=== PATIENT | male | born 1955 | race Caucasian/White ===

== ENCOUNTER 2020-01-21 18:25 | Observation (INO) | payer OTHER, MEDICARE ==
[~2020-01-21] VITALS: Ht 182 cm; Wt 81.0 kg
[~2020-01-21 18:25] MED LIST: BIMA2.5D4 OU; LORA10TA76 PO
[2020-01-21] MEDS ORDERED: NITROGLYCERIN 0.4 MG SL TABS BTL 25'S SL PRN ×2 (18:45→22:30)
[2020-01-21] MEDS ORDERED: ASPIRIN 81 MG CHEW (CHILDREN'S ASA) PO ONE (18:45)
--- NOTE | 2020-01-21 18:48 | Diagnostic Imaging Report ---
Indication: Chest pain Portable chest 6:50 PM Heart size and pulmonary vascularity are normal. Lungs are clear. There are no effusions or pneumothoraces. IMPRESSION: Negative chest Dictated by: Dictated on workstation # [id number]
[2020-01-21 18:51] LABS: BASOPHILS % (AUTO) 1 % (0-10); EOSINOPHILS # (AUTO) 0.1 10^3/uL (0.0-0.3); EOSINOPHILS % (AUTO) 2 % (0-10); HEMATOCRIT 41 % (40-54); HEMOGLOBIN 14.3 G/DL (13.3-17.7); LYMPHOCYTES # (AUTO) 1.2 X 10^3 (1.0-4.0); LYMPHOCYTES % (AUTO) 23 % (12-44); MEAN CORPUSCULAR HEMOGLOBIN 33 PG (25-34); MEAN CORPUSCULAR HGB CONC 35 G/DL (32-36); MEAN CORPUSCULAR VOLUME 95 FL (80-99); MEAN PLATELET VOLUME 9.1 FL (7.4-10.4); MONOCYTES # (AUTO) 0.7 X 10^3 (0.0-1.0); MONOCYTES % (AUTO) 14 % (0-12); NEUTROPHILS # (AUTO) 3.2 X 10^3 (1.8-7.8); NEUTROPHILS % (AUTO) 61 % (42-75); PLATELET COUNT 244 10^3/uL (130-400); WHITE BLOOD COUNT 5.2 10^3/uL (4.3-11.0)
--- NOTE | 2020-01-21 19:00 | ED Chest Pain ---
General Chief Complaint: Chest Pain Stated Complaint: ABNORMAL EKG;CHEST PRESSURE;HIGH BP Nursing Triage Note: PT STATES HE WAS EXPOSED TO A COVID POSITIVE PERSON ON 01/15, CC TODAY OF CHEST PAIN/PRESSURE, HEADACHE AND DRY HEAVES. SENT HERE FROM [facility] AFTER A NEGATIVE COVID AND FLU TEST. Nursing Sepsis Screen: No Definite Risk Source: patient Exam Limitations: no limitations History of Present Illness Date Seen by Provider: Jan 21, 2020 Time Seen by Provider: 18:28 Initial Comments The patient presents to the ER by private conveyance from [facility] care with chief complaint this morning around 10:00 he started expressing some pressure in his midepigastric and low chest area. Not worse with deep inspiration. He describes some mild shortness of air but not exertional. It does not radiate anywhere and is constant about a 5 or 6 out of 10. He also has a headache about a 5 out of 10 and this is not unusual since he gets sinus headaches however he's not having any nasal congestion or sinus pain lately. He has no coughing but has some nausea with dry heaving and constipation. No diarrhea. One week ago he was a chiropractor who called him and told her that they had COVID-19. He has had no fevers. He had an appointment to follow up with some blood work with Dr. Andrew Connell his PCP tomorrow and since he had a sick contact he decided to go to the urgent care to be tested. They tested him for influenza and COVID-19 both of which were negative. He then got an EKG demonstrating no ST elevation and was sent to the ER for further evaluation. He's had no abdominal surgeries. He does not otherwise routinely follow with a doctor. He does have hypertension but does not take anything for it yet. He does not know about hyperlipidemia and denies a history of diabetes or smoking. He says in the distant past 20 years or more he had smoked. He does not take recreational drugs. He does drink about 5-6 beers a day. No history of pancreatitis GERD or endoscopy. Allergies and Home Medications Allergies Coded Allergies: ciprofloxacin (Verified Allergy, Unknown, knee joint pain, 03/02/16) Uncoded Allergies: steroids (Allergy, Unknown, has retina problems and told to avoid steroids, 03/02/16) Home Medications Bimatoprost 2.5 Ml Drops, 1 DROP OU HS, (Reported) Loratadine 10 Mg Tablet, 10 MG PO DAILY, (Reported) Patient Home Medication List Home Medication List Reviewed: Yes Review of Systems Review of Systems Constitutional: No chills, No fever, No malaise EENTM: No Blurred Vision, No Double Vision Respiratory: Denies Cough, Denies Shortness of Air Cardiovascular: See HPI, Chest Pain; Denies Lightheadedness Gastrointestinal: See HPI, Abdominal Pain, Constipated; Denies Diarrhea; Nausea, Poor Fluid Intake, Vomiting Genitourinary: Denies Burning, Denies Discharge Musculoskeletal: No back pain, No joint pain Skin: No pruritus, No rash Psychiatric/Neurological: Denies Headache, Denies Numbness, Denies Paresthesia All Other Systems Reviewed Negative Unless Noted: Yes Past Syftkdo-Lsavza-Mkkwwo Hx Patient Social History Alcohol Use: Regular Use Alcohol Beverage of Choice: Beer (6 pk/day) Recreational Drug Use: No Smoking Status: Former Smoker Former Smoker, Quit: Mar 04, 1985 Recent Foreign Travel: No Contact w/Someone Who Travel: No Recent Infectious Disease Expo: No Recent Hopitalizations: No Seasonal Allergies Seasonal Allergies: Yes Past Medical History Tonsillectomy, Vasectomy Prostate Problems Arthritis Glaucoma Physical Exam Vital Signs Vital Signs - First Documented 01/21/20 18:31 Temp 36.6 Pulse 75 Resp 20 B/P (MAP) 169/92 (117) Pulse Ox 100 O2 Delivery Room Air Capillary Refill : Less Than 3 Seconds Height, Weight, BMI Height: 6'0.00" Weight: 160lbs. 0.0oz. 72.037295hj; 24.00 BMI Method: General Appearance: No Apparent Distress, WD/WN, Anxious HEENT: PERRL/EOMI, Pharynx Normal, Moist Mucous Membranes Neck: Full Range of Motion, Normal Inspection Respiratory: Chest Non Tender, Lungs Clear, Normal Breath Sounds, No Accessory Muscle Use, No Respiratory Distress Cardiovascular: Regular Rate, Rhythm, No Edema, Normal Peripheral Pulses Gastrointestinal: Normal Bowel Sounds, No Organomegaly, No Pulsatile Mass, Soft, Tenderness (midepigastric and right upper quadrant) Extremity: Normal Capillary Refill, Normal Inspection, No Calf Tenderness, No Pedal Edema Neurologic/Psychiatric: Alert, Oriented x3 Skin: Normal Color, Warm/Dry Progress/Results/Core Measures Results/Orders Lab Results Laboratory Tests Test 9/28/20 18:35 Range/Units White Blood Count 5.2 4.3-11.0 10^3/uL Red Blood Count 4.35 4.35-5.85 10^6/uL Hemoglobin 14.3 13.3-17.7 G/DL Hematocrit 41 40-54 % Mean Corpuscular Volume 95 80-99 FL Mean Corpuscular Hemoglobin 33 25-34 PG Mean Corpuscular Hemoglobin Concent 35 32-36 G/DL Red Cell Distribution Width 12.4 10.0-14.5 % Platelet Count 244 130-400 10^3/uL Mean Platelet Volume 9.1 7.4-10.4 FL Neutrophils (%) (Auto) 61 42-75 % Lymphocytes (%) (Auto) 23 12-44 % Monocytes (%) (Auto) 14 H 0-12 % Eosinophils (%) (Auto) 2 0-10 % Basophils (%) (Auto) 1 0-10 % Neutrophils # (Auto) 3.2 1.8-7.8 X 10^3 Lymphocytes # (Auto) 1.2 1.0-4.0 X 10^3 Monocytes # (Auto) 0.7 0.0-1.0 X 10^3 Eosinophils # (Auto) 0.1 0.0-0.3 10^3/uL Basophils # (Auto) 0.0 0.0-0.1 10^3/uL Prothrombin Time 12.9 12.2-14.7 SEC INR Comment 0.9 0.8-1.4 Activated Partial Thromboplast Time 27 24-35 SEC Sodium Level 133 L 135-145 MMOL/L Potassium Level 3.8 3.6-5.0 MMOL/L Chloride Level 96 L 98-107 MMOL/L Carbon Dioxide Level 23 21-32 MMOL/L Anion Gap 14 5-14 MMOL/L Blood Urea Nitrogen 9 7-18 MG/DL Creatinine 0.80 0.60-1.30 MG/DL Estimat Glomerular Filtration Rate > 60 BUN/Creatinine Ratio 11 Glucose Level 72 70-105 MG/DL Calcium Level 9.5 8.5-10.1 MG/DL Corrected Calcium 8.5-10.1 MG/DL Magnesium Level 2.2 1.6-2.4 MG/DL Total Bilirubin 0.9 0.1-1.0 MG/DL Aspartate Amino Transf (AST/SGOT) 55 H 5-34 U/L Alanine Aminotransferase (ALT/SGPT) 55 0-55 U/L Alkaline Phosphatase 48 40-136 U/L Myoglobin 33.6 10.0-92.0 NG/ML Troponin I < 0.028 <0.028 NG/ML B-Type Natriuretic Peptide 16.0 <100.0 PG/ML Total Protein 7.5 6.4-8.2 GM/DL Albumin 4.7 H 3.2-4.5 GM/DL Lipase 32 8-78 U/L My Orders Orders - CASTRO JOHNSON Cbc With Automated Diff (01/21/20 18:29) Magnesium (01/21/20 18:29) Chest 1 View, Ap/Pa Only (01/21/20 18:29) Ekg Tracing (01/21/20 18:29) Comprehensive Metabolic Panel (01/21/20 18:29) Myoglobin Serum (01/21/20 18:29) Protime With Inr (01/21/20 18:29) Partial Thromboplastin Time (01/21/20 18:29) O2 (01/21/20 18:29) Monitor-Rhythm Ecg Trace Only (01/21/20 18:29) Lipid Panel (01/22/20 06:00) Ed Iv/Invasive Line Start (01/21/20 18:29) Lipase (01/21/20 18:29) BNP (01/21/20 18:29) Troponin I (01/21/20 18:29) Aspirin Chewable Tablet (Baby Aspirin Ch (01/21/20 18:45) Nitroglycerin 0.4 Mg Btl 25's (Nitrostat (01/21/20 18:45) Lidocaine 2% Viscous 15 Ml (Xylocaine Vi (01/21/20 19:15) Antacid Suspension (Mylanta Suspension (01/21/20 19:15) Pantoprazole Injection (Protonix Injecti (01/21/20 19:15) Ct Abdomen/Pelvis W (01/21/20 19:29) Iohexol Injection (Omnipaque 350 Mg/Ml 1 (01/21/20 20:15) Received Contrast (Hold Metformin- Contr (01/21/20 20:15) Ns (Ivpb) (Sodium Chloride 0.9% Ivpb Bag (01/21/20 20:15) Medications Given in ED Current Medications Medications Dose Ordered Sig/Olga Route Start Time Stop Time Status Last Admin Dose Admin Al Hydrox/Mg Hydrox/Simethicone 30 ml ONCE ONCE PO 01/21/20 19:15 01/21/20 19:16 DC 01/21/20 19:15 30 ML Aspirin 324 mg ONCE ONCE PO 01/21/20 18:45 01/21/20 18:47 DC 01/21/20 18:48 324 MG Lactated Ringer's 1,000 ml @ 0 mls/hr Q0M ONCE IV 01/21/20 19:36 01/21/20 19:37 DC 01/21/20 19:51 1,000 MLS/HR Lidocaine HCl 15 ml ONCE ONCE PO 01/21/20 19:15 01/21/20 19:16 DC 01/21/20 19:15 15 ML Nitroglycerin 0.4 mg NEEDED PRN SL 01/21/20 18:45 01/21/20 18:48 0.4 MG Pantoprazole 40 mg ONCE ONCE IV 01/21/20 19:15 01/21/20 19:16 DC 01/21/20 19:26 40 MG Vital Signs/I&O 01/21/20 01/21/20 18:31 18:40 Temp 36.6 Pulse 75 Resp 20 B/P (MAP) 169/92 (117) Pulse Ox 100 O2 Delivery Room Air Room Air Blood Pressure Mean: 117 Progress Progress Note #1: Time: 19:07 Progress Note Pain seems to be reproducible to the midepigastric and right upper quadrant. GERD/gastritis, pancreatitis, gallbladder are in the differential. We will also workup coronary disease since he does not have a good history given his age and history of hypertension. He has a negative influenza and COVID 19 test. He is comfortable by an EKG from [facility] care showing no clinically relevant ST elevation or depression. Progress Note #2: Time: 19:30 Progress Note While the patient says the nitroglycerin did slightly help his discomfort ease off the GI cocktail did not do anything for him. He still rates it as a 4 out of 10 pain in the epigastric region. Plan to get a CT with IV contrast. Last oral intake was at noon, 7 1/2 hours ago. Heart score 4 points. We have recommended observation stay if the CT does not demonstrate acute cholecystitis. Initial ECG Impression Date: Jan 21, 2020 Initial ECG Impression Time: 18:35 Initial ECG Rate: 69 Initial ECG Rhythm: Normal Sinus Initial ECG Intervals: Normal Initial ECG Impression: Normal Initial ECG Comparisson: No Previous ECG Available Comment No clinically relevant ST elevation or depression. Sinus rhythm. Diagnostic Imaging Diagonstic Imaging: Xray Plain Films/CT/US/NM/MRI: chest (1v) Comments NAME: JESSIE BALLARD [facility] REC#: [id number] PT STATUS: REG ER : 1955 PHYSICIAN: CASTRO JOHNSON MD ADMIT DATE: 01/21/20/ER Signed Date of Exam:01/21/20 CHEST 1 VIEW, AP/PA ONLY Indication: Chest pain Portable chest 6:50 PM Heart size and pulmonary vascularity are normal. Lungs are clear. There are no effusions or pneumothoraces. IMPRESSION: Negative chest Dictated by: Dictated on workstation # [id number] Dict: 01/21/201845 Trans: 01/21/201846 [id number] Interpreted by: MITCHELL ISRAEL MD Electronically signed by: MITCHELL ISRAEL MD 01/21/201846 Reviewed: Reviewed by De Diagonstic Imaging: CT Plain Films/CT/US/NM/MRI: abdomen, pelvis Comments NAME: JESSIE BALLARD [facility] REC#: [id number] PT STATUS: REG ER : 1955 PHYSICIAN: CASTRO JOHNSON MD ADMIT DATE: 01/21/20/ER Draft Date of Exam:01/21/20 CT ABDOMEN/PELVIS W PROCEDURE: CT abdomen and pelvis with contrast. TECHNIQUE: Multiple contiguous axial images were obtained through the abdomen and pelvis after administration of intravenous contrast. Auto Exposure Controls were utilized during the CT exam to meet ALARA standards for radiation dose reduction. All CT scans use one or more of the following dose optimizing techniques: automated exposure control, MA and/or KvP adjustment based on patient size and exam type or iterative reconstruction. INDICATION: Chest pain, abnormal EKG, right upper quadrant abdominal pain, nausea. COMPARISON: None FINDINGS: The lung bases are clear. The heart is normal in size. There is no pericardial effusion. This is a postcontrast exam but the liver does appear hypodense suggestive of hepatic steatosis. The spleen appears normal. The pancreas is normal. The adrenal glands appear normal. The kidneys are unremarkable. The bowel loops are nondistended without obstruction seen. The appendix is normal. No free fluid or free air is seen. There are degenerative changes in the spine with no acute osseous abnormality seen. IMPRESSION: 1. Hepatic steatosis. Otherwise, no acute abnormality is seen in the abdomen and pelvis. Dictated on workstation # [id number] Dict: 01/21/202026 Trans: 01/21/202034 [facility] [id number] Interpreted by: EARLINE MOSHER MD Electronically signed by: Reviewed: Reviewed by Me Departure Impression Primary Impression: ACS (acute coronary syndrome) Disposition: ADMITTED INPATIENT Condition: Stable Departure-Patient Inst. Referrals: ANDREW CONNELL MD (PCP) Primary Care Physician CASTRO JOHNSON Jan 21, 2020 19:00
[2020-01-21 19:07] LABS: ALANINE AMINOTRANSFERASE 55 U/L (0-55); ALBUMIN 4.7 GM/DL (3.2-4.5); ALKALINE PHOSPHATASE 48 U/L (40-136); BILIRUBIN,TOTAL 0.9 MG/DL (0.1-1.0); BUN/CREATININE RATIO 11; CALCIUM 9.5 MG/DL (8.5-10.1); CARBON DIOXIDE 23 MMOL/L (21-32); CHLORIDE 96 MMOL/L (98-107); GFR ESTIMATED > 60; GLUCOSE 72 MG/DL (70-105); LIPASE 32 U/L (8-78); MAGNESIUM 2.2 MG/DL (1.6-2.4); POTASSIUM 3.8 MMOL/L (3.6-5.0); SODIUM 133 MMOL/L (135-145); TOTAL PROTEIN 7.5 GM/DL (6.4-8.2)
[2020-01-21 19:11] LABS: INR 0.9 (0.8-1.4); PROTHROMBIN TIME PATIENT 12.9 SEC (12.2-14.7)
[2020-01-21] MEDS ORDERED: PANTOPRAZOLE 40 MG (PROTONIX) VIAL IV ONE (19:15)
[2020-01-21] MEDS ORDERED: LIDOCAINE 2% VISCOUS 15 ML UDC PO ONE (19:15)
[2020-01-21] MEDS ORDERED: ANTACID SUSP 30 ML UDC (MYLANTA) PO ONE (19:15)
[2020-01-21] MEDS ORDERED: LACTATED RINGERS 1,000 ML IV ONE (19:36)
[2020-01-21] MEDS ORDERED: HOLD METFORMIN - RECEIVED CONTRAST 20 ML VIAL IV SCH (20:15)
[2020-01-21] MEDS ORDERED: IOHEXOL 350 MG/ML 100 ML (OMNIPAQUE 350) VIAL IV ONE (20:15)
[2020-01-21] MEDS ORDERED: NS 100 ML (IVPB) BAG IV ONE (20:15)
--- NOTE | 2020-01-21 20:36 | Diagnostic Imaging Report ---
PROCEDURE: CT abdomen and pelvis with contrast. TECHNIQUE: Multiple contiguous axial images were obtained through the abdomen and pelvis after administration of intravenous contrast. Auto Exposure Controls were utilized during the CT exam to meet ALARA standards for radiation dose reduction. All CT scans use one or more of the following dose optimizing techniques: automated exposure control, MA and/or KvP adjustment based on patient size and exam type or iterative reconstruction. INDICATION: Chest pain, abnormal EKG, right upper quadrant abdominal pain, nausea. COMPARISON: None FINDINGS: The lung bases are clear. The heart is normal in size. There is no pericardial effusion. This is a postcontrast exam but the liver does appear hypodense suggestive of hepatic steatosis. The spleen appears normal. The pancreas is normal. The adrenal glands appear normal. The kidneys are unremarkable. The bowel loops are nondistended without obstruction seen. The appendix is normal. No free fluid or free air is seen. There are degenerative changes in the spine with no acute osseous abnormality seen. IMPRESSION: 1. Hepatic steatosis. Otherwise, no acute abnormality is seen in the abdomen and pelvis. Dictated by: Dictated on workstation # [id number]
[2020-01-21] MEDS ORDERED: PROPOFOL DRIP (ICU) 100 ML IV SCH (21:00)
[2020-01-21] MEDS ORDERED: ACETAMINOPHEN 325 MG TABLET PO ONE (21:30)
[2020-01-21] MEDS ORDERED: ACETAMINOPHEN 325 MG TABLET PO PRN (22:15)
[2020-01-21 22:18] VITALS: BP 157/83
[2020-01-21] MEDS ORDERED: morphine INJ 4 MG/ML 1 ML (VIAL/SYRINGE) IV PRN (22:30)
[2020-01-21] MEDS ORDERED: ONDANSETRON 4 MG/2 ML (SDV) Z0FRAN IVP PRN (22:30)
[2020-01-21] MEDS ORDERED: ANTACID SUSP 30 ML UDC (MYLANTA) PO PRN (22:30)
[2020-01-21 22:34] VITALS: BP 157/83
[2020-01-22 02:44] VITALS: BP 138/77
[2020-01-22 05:51] LABS: BASOPHILS % (AUTO) 1 % (0-10); EOSINOPHILS # (AUTO) 0.1 10^3/uL (0.0-0.3); EOSINOPHILS % (AUTO) 4 % (0-10); HEMATOCRIT 38 % (40-54); HEMOGLOBIN 13.2 g/dL (13.3-17.7); LYMPHOCYTES % (AUTO) 28 % (12-44); MEAN CORPUSCULAR HEMOGLOBIN 33 pg (25-34); MEAN CORPUSCULAR HGB CONC 35 g/dL (32-36); MEAN CORPUSCULAR VOLUME 95 fL (80-99); MEAN PLATELET VOLUME 9.3 fL (9.0-12.2); MONOCYTES # (AUTO) 0.5 10^3/uL (0.0-1.0); MONOCYTES % (AUTO) 14 % (0-12); NEUTROPHILS # (AUTO) 1.9 10^3/uL (1.8-7.8); NEUTROPHILS % (AUTO) 53 % (42-75); PLATELET COUNT 223 10^3/uL (130-400); WHITE BLOOD COUNT 3.5 10^3/uL (4.3-11.0)
[2020-01-22 05:55] LABS: CHLORIDE 100 MMOL/L (98-107); POTASSIUM 3.8 MMOL/L (3.6-5.0); SODIUM 136 MMOL/L (135-145)
[2020-01-22 05:57] LABS: TRIGLYCERIDES 110 MG/DL (<150); VLDL CHOLESTEROL 22 MG/DL (5-40)
[2020-01-22 05:58] LABS: GLUCOSE 87 MG/DL (70-105); TOTAL PROTEIN 6.3 GM/DL (6.4-8.2)
[2020-01-22 05:59] LABS: CARBON DIOXIDE 23 MMOL/L (21-32)
[2020-01-22 06:00] LABS: BILIRUBIN,TOTAL 0.9 MG/DL (0.1-1.0)
[2020-01-22 06:01] LABS: ALKALINE PHOSPHATASE 45 U/L (40-136); CREATININE SERUM 0.74 MG/DL (0.60-1.30); GFR ESTIMATED > 60
[2020-01-22 06:02] LABS: CHOLESTEROL 196 MG/DL (< 200)
[2020-01-22 06:03] LABS: BUN/CREATININE RATIO 9
[2020-01-22 06:04] LABS: ALANINE AMINOTRANSFERASE 45 U/L (0-55); HDL CHOLESTEROL 78 MG/DL (40-60)
[2020-01-22 08:00] VITALS: BP 142/78
--- NOTE | 2020-01-22 08:48 | Consultation-Cardiology ---
HPI-Cardiology Cardiology Consultation Date of Consultation 01/22/20 Date of Admission Time Seen by Provider: 14:13 Indication: chest pain HPI 64 years old gentleman with no significant past medical history, started to have nausea, dry heaves and mild abdominal pain associated with headache. He reported that he had exposure to possible COVID patient about 5 days ago. Decided to go to the urgent care yesterday afternoon and he was tested for flu and COVID-19 it was negative. Patient continued to have epigastric pain and then he started to feel some pressure in the retrosternal area. Came into the emergency room, has slight response to sublingual nitroglycerin but no full relief. Given GI cocktail. Workup was negative in the ER including CT of the abdomen. Cardiac enzymes were negative. He is not having any active pain today. Home Medications & Allergies Allergies: Coded Allergies: ciprofloxacin (Verified Allergy, Unknown, knee joint pain, 03/02/16) Uncoded Allergies: steroids (Allergy, Unknown, has retina problems and told to avoid steroids, 03/02/16) Home Medication List Reviewed: Yes AFY-[id number]-Hzklxa Hx Patient Social History Marital Status: Employed/Student: employed Alcohol Use: Regular Use Recreational Drug Use: No Smoking Status: Former Smoker Recent Foreign Travel: No Recent Infectious Disease Expo: No Recent Hopitalizations: No Past Medical History Discussed below Family Medical History Family Medical Hx Noncontributory Review of Systems-General Review of Systems Constitutional: see HPI; No chills, No fever, No malaise; other (headache) EENTM: see HPI, no symptoms reported, other (headache) Respiratory: no symptoms reported, see HPI Cardiovascular: see HPI, chest pain; No edema, No Hx of Intervention, No palpitations, No syncope, No vascular heart diseas, No other Gastrointestinal: see HPI, abdominal pain, constipation Genitourinary: no symptoms reported, see HPI Musculoskeletal: no symptoms reported, see HPI; No back pain, No joint pain Skin: no symptoms reported, see HPI; No pruritus, No rash Psychiatric/Neurological: No Symptoms Reported, See HPI; Denies Headache, Denies Numbness, Denies Paresthesia All Other Systems Reviewed Negative Unless Noted: Yes Reviewed Test Results Reviewed Test Results Lab Laboratory Tests Test 01/21/20 18:35 01/21/20 21:40 01/22/20 00:00 01/22/20 05:29 Range/Units White Blood Count 5.2 3.5 L 4.3-11.0 10^3/uL Red Blood Count 4.35 4.00 L 4.30-5.52 10^6/uL Hemoglobin 14.3 13.2 L 13.3-17.7 g/dL Hematocrit 41 38 L 40-54 % Mean Corpuscular Volume 95 95 80-99 fL Mean Corpuscular Hemoglobin 33 33 25-34 pg Mean Corpuscular Hemoglobin Concent 35 35 32-36 g/dL Red Cell Distribution Width 12.4 11.9 10.0-14.5 % Platelet Count 244 223 130-400 10^3/uL Mean Platelet Volume 9.1 9.3 9.0-12.2 fL Neutrophils (%) (Auto) 61 53 42-75 % Lymphocytes (%) (Auto) 23 28 12-44 % Monocytes (%) (Auto) 14 H 14 H 0-12 % Eosinophils (%) (Auto) 2 4 0-10 % Basophils (%) (Auto) 1 1 0-10 % Neutrophils # (Auto) 3.2 1.9 1.8-7.8 10^3/uL Lymphocytes # (Auto) 1.2 1.0 1.0-4.0 10^3/uL Monocytes # (Auto) 0.7 0.5 0.0-1.0 10^3/uL Eosinophils # (Auto) 0.1 0.1 0.0-0.3 10^3/uL Basophils # (Auto) 0.0 0.0 0.0-0.1 10^3/uL Prothrombin Time 12.9 12.2-14.7 SEC INR Comment 0.9 0.8-1.4 Activated Partial Thromboplast Time 27 24-35 SEC Sodium Level 133 L 136 135-145 MMOL/L Potassium Level 3.8 3.8 3.6-5.0 MMOL/L Chloride Level 96 L 100 98-107 MMOL/L Carbon Dioxide Level 23 23 21-32 MMOL/L Anion Gap 14 13 5-14 MMOL/L Blood Urea Nitrogen 9 7 7-18 MG/DL Creatinine 0.80 0.74 0.60-1.30 MG/DL Estimat Glomerular Filtration Rate > 60 > 60 BUN/Creatinine Ratio 11 9 Glucose Level 72 87 70-105 MG/DL Calcium Level 9.5 9.0 8.5-10.1 MG/DL Corrected Calcium 9.0 8.5-10.1 MG/DL Magnesium Level 2.2 1.6-2.4 MG/DL Total Bilirubin 0.9 0.9 0.1-1.0 MG/DL Aspartate Amino Transf (AST/SGOT) 55 H 42 H 5-34 U/L Alanine Aminotransferase (ALT/SGPT) 55 45 0-55 U/L Alkaline Phosphatase 48 45 40-136 U/L Myoglobin 33.6 10.0-92.0 NG/ML Troponin I < 0.028 < 0.028 < 0.028 <0.028 NG/ML B-Type Natriuretic Peptide 16.0 <100.0 PG/ML Total Protein 7.5 6.3 L 6.4-8.2 GM/DL Albumin 4.7 H 4.0 3.2-4.5 GM/DL Lipase 32 8-78 U/L Immature Granulocyte % (Auto) 1 % Immature Granulocyte # (Auto) 0.0 0.0-0.1 10^3/uL Triglycerides Level 110 <150 MG/DL Cholesterol Level 196 < 200 MG/DL LDL Cholesterol Direct 99 1-129 MG/DL VLDL Cholesterol 22 5-40 MG/DL HDL Cholesterol 78 H 40-60 MG/DL Physical Exam Physical Exam Vital Signs Vital Signs - First Documented 01/21/20 18:31 Temp 36.6 Pulse 75 Resp 20 B/P (MAP) 169/92 (117) Pulse Ox 100 O2 Delivery Room Air Capillary Refill : Less Than 3 Seconds Height, Weight, BMI Height: 6'0.00" Weight: 160lbs. 0.0oz. 72.955099cy; 24.45 BMI Method: General Appearance: No Apparent Distress, WD/WN, Anxious HEENT: PERRL/EOMI, Pharynx Normal, Moist Mucous Membranes Neck: Full Range of Motion, Normal Inspection Respiratory: Chest Non Tender, Lungs Clear, Normal Breath Sounds, No Accessory Muscle Use, No Respiratory Distress Cardiovascular: Regular Rate, Rhythm, No Edema, Normal Peripheral Pulses Gastrointestinal: Normal Bowel Sounds, No Organomegaly, No Pulsatile Mass, Soft, Tenderness (midepigastric and right upper quadrant) Extremity: Normal Capillary Refill, Normal Inspection, No Calf Tenderness, No Pedal Edema Neurologic/Psychiatric: Alert, Oriented x3 Skin: Normal Color, Warm/Dry A/P-Cardiology Admission Diagnosis Chest pain Abdominal pain Nausea Hypertension Assessment/Plan Chest pain nonspecific etiology, atypical in presentation, no active pain at this time. Cardiac enzymes has been negative. Discussed with the patient management plan recommended evaluating stress test which can be done as an outpatient Abdominal pain, constipation, nausea. Reporting some improvement managed by primary care physician Hypertension, blood pressure has been better since hospital arrival. Reporting good blood pressure control at home. Continue to monitor Moderate alcohol use, we discussed limiting alcohol use. Chronic arthritic pain for which she take ibuprofen daily. Recommended avoiding NSAID if possible Clinical Quality Measures AMI/AHF: ASA po Prior to arrival: No DVT/VTE Risk/Contraindication: Risk Factor Score Per Nursin RFS Level Per Nursing on Admit: 2=Moderate MALINI DEL ROSARIO MD Jan 22, 2020 08:48
[2020-01-22] MEDS ORDERED: ASPIRIN E.C. 81 MG (ECOTRIN) TAB PO SCH (09:00)
[2020-01-22] MEDS ORDERED: PANTOPRAZOLE 40 MG (PROTONIX) TAB PO SCH (09:15)
[2020-01-22] MEDS ORDERED: IBUP-2473 PO (11:29)
[2020-01-22] MEDS ORDERED: FEXO180T84 PO (11:29)
[2020-01-22] MEDS ORDERED: LATA2.5D5 OU (11:29)
[2020-01-22] MEDS ORDERED: AFLI2VIA OD (11:29)
[2020-01-22] MEDS ORDERED: CETI10TA49 PO (11:29)
--- NOTE | 2020-01-22 11:33 | NUR ---
SPOKE WITH THE PT (I CALLED HIS ROOM PHONE) AND WENT THRU THE EXT MED HISTORY TO COMPLETE THE MED REC ACCORDING TO THE PT HE RECEIVES EYLEA INJECTIONS IN HIS RIGHT EYE EVERY 3 MONTHS- HIS LAST DOSE WAS IN THE MIDDLE OF OCTOBER 2019 AND HIS NEXT APPOINTMENT IS IN 2 WEEKS PT SAYS HE TAKES CETIRIZINE 10MG EVERYDAY BUT IF HE ALLERGIES ARE STILL BOTHERING HIM HE WILL TAKE FEXOFENADINE 180MG IN THE LATE AFTERNOON OTC MEDS: CETIRIZINE IBUPROFEN PHUC
[2020-01-22 12:15] VITALS: BP 138/82
--- NOTE | 2020-01-22 13:09 | History & Physical ---
History of Present Illness History of Present Illness Reason for visit/HPI 64 yo M admitted for abdominal pain, chest pain and recent COVID-19 exposure on 01/16/20- He has stuffy nose today since he has not taken his zyrtec. He has had some runny nose but very minimal. He still has the fatigue/drained feeling. Date of Admission Jan 21, 2020 at 21:30 Date Seen by a Provider: Jan 22, 2020 Time Seen by a Provider: 13:09 I consulted on this patient on 01/22/20 13:07 Attending Physician Andrew Connell MD Admitting Physician Andrew Connell MD Consult Allergies and Home Medications Allergies Coded Allergies: ciprofloxacin (Verified Allergy, Unknown, knee joint pain, 03/02/16) Uncoded Allergies: steroids (Allergy, Unknown, has retina problems and told to avoid steroids, 03/02/16) Home Medications Aflibercept 2 Mg/0.05 Ml Vial, 2 MG OD EVERY 3 MONTHS, (Reported) Cetirizine HCl 10 Mg Tablet, 10 MG PO DAILY, (Reported) Fexofenadine HCl 180 Mg Tablet, 180 MG PO 1600 PRN for UNCONTROLLED ALLERGY SYMPTOMS, (Reported) Ibuprofen 200 Mg Tablet, 400 MG PO Q6H PRN for PAIN-MILD (1-4), (Reported) Latanoprost 2.5 Ml Drops, 1 DROP OU HS, (Reported) Past Gmlhldn-Jjknve-Lqwysm Hx Patient Social History Marrital Status: Employed/Student: employed Alcohol Use: Regular Use Alcohol Beverage of Choice: Beer (6 pk/day) Recreational Drug Use: No Smoking Status: Former Smoker Former Smoker, Quit: Mar 04, 1985 Recent Foreign Travel: No Contact w/other who traveled: No Recent Hopitalizations: No Recent Infectious Disease Expo: No Seasonal Allergies Seasonal Allergies: Yes Surgeries Yes (left shoulder, hemorrhoidectomy, knee scope) Ear Surgery, Tonsillectomy, Vasectomy Respiratory No Cardiovascular No Neurological No Genitourinary Yes Prostate Problems Gastrointestinal No Musculoskeletal Yes (joint pain) Arthritis Endocrine History of Endocrine Disorders: No HEENT History of HEENT Disorders: Yes (INJECTIONS IN EYES) HEENT Disorders: Macular Degeneration, Glaucoma Cancer No Psychosocial History of Psychiatric Problem: No Integumentary History of Skin or Integumenta: No Blood Transfusions History of Blood Disorders: No Review of Systems All Other Systems Reviewed All Other Systems Reviewed: Yes Physical Exam Vital Signs Vital Signs - First Documented 01/21/20 18:31 Temp 36.6 Pulse 75 Resp 20 B/P (MAP) 169/92 (117) Pulse Ox 100 O2 Delivery Room Air Capillary Refill : Less Than 3 Seconds Height, Weight, BMI Height: 6'0.00" Weight: 160lbs. 0.0oz. 72.064163mh; 24.45 BMI Method: Assessment/Plan Assessment/Plan Assessment and Plan discharge to home - he has follow up appt next week Tuesday01/28/20 at [facility]. Follow up with Dr. Cadena in 2 weeks for stress test. Clinical Quality Measures AMI/AHF: ASA po Prior to arrival: No DVT/VTE Risk/Contraindication: Risk Factor Score Per Nursin RFS Level Per Nursing on Admit: 2=Moderate ANDREW CONNELL MD Jan 22, 2020 13:09
--- NOTE | 2020-01-22 13:11 | Discharge Summary ---
Discharge Summary Hospital Course Hospital Course Date of Admission: Jan 21, 2020 at 21:30 Admission Diagnosis : Family Physician/Provider: Date of Discharge: 01/22/20 Discharge Diagnosis: [ ] Hospital Course: [ ] Labs and Pending Lab Test: Laboratory Tests 01/21/20 18:35: White Blood Count 5.2, Red Blood Count 4.35, Hemoglobin 14.3, Hematocrit 41, Mean Corpuscular Volume 95, Mean Corpuscular Hemoglobin 33, Mean Corpuscular Hemoglobin Concent 35, Red Cell Distribution Width 12.4, Platelet Count 244, Mean Platelet Volume 9.1, Neutrophils (%) (Auto) 61, Lymphocytes (%) (Auto) 23, Monocytes (%) (Auto) 14H, Eosinophils (%) (Auto) 2, Basophils (%) (Auto) 1, Neutrophils # (Auto) 3.2, Lymphocytes # (Auto) 1.2, Monocytes # (Auto) 0.7, Eosinophils # (Auto) 0.1, Basophils # (Auto) 0.0, Prothrombin Time 12.9, INR Comment 0.9, Activated Partial Thromboplast Time 27, Sodium Level 133L, Potassium Level 3.8, Chloride Level 96L, Carbon Dioxide Level 23, Anion Gap 14, Blood Urea Nitrogen 9, Creatinine 0.80, Estimat Glomerular Filtration Rate > 60, BUN/Creatinine Ratio 11, Glucose Level 72, Calcium Level 9.5, Corrected Calcium , Magnesium Level 2.2, Total Bilirubin 0.9, Aspartate Amino Transf (AST/SGOT) 55H, Alanine Aminotransferase (ALT/SGPT) 55, Alkaline Phosphatase 48, Myoglobin 33.6, Troponin I < 0.028, B-Type Natriuretic Peptide 16.0, Total Protein 7.5, Albumin 4.7H, Lipase 32 01/21/20 21:40: Coronavirus (COVID-19)(PCR) [Pending] 01/22/20 00:00: Troponin I < 0.028 01/22/20 05:29: White Blood Count 3.5L, Red Blood Count 4.00L, Hemoglobin 13.2L, Hematocrit 38L, Mean Corpuscular Volume 95, Mean Corpuscular Hemoglobin 33, Mean Corpuscular Hemoglobin Concent 35, Red Cell Distribution Width 11.9, Platelet Count 223, Mean Platelet Volume 9.3, Neutrophils (%) (Auto) 53, Lymphocytes (%) (Auto) 28, Monocytes (%) (Auto) 14H, Eosinophils (%) (Auto) 4, Basophils (%) (Auto) 1, Neutrophils # (Auto) 1.9, Lymphocytes # (Auto) 1.0, Monocytes # (Auto) 0.5, Eosinophils # (Auto) 0.1, Basophils # (Auto) 0.0, Sodium Level 136, Potassium Level 3.8, Chloride Level 100, Carbon Dioxide Level 23, Anion Gap 13, Blood Urea Nitrogen 7, Creatinine 0.74, Estimat Glomerular Filtration Rate > 60, BUN/Creatinine Ratio 9, Glucose Level 87, Calcium Level 9.0, Corrected Calcium 9.0, Total Bilirubin 0.9, Aspartate Amino Transf (AST/SGOT) 42H, Alanine Aminotransferase (ALT/SGPT) 45, Alkaline Phosphatase 45, Troponin I < 0.028, Total Protein 6.3L, Albumin 4.0, Immature Granulocyte % (Auto) 1, Immature Gra nulocyte # (Auto) 0.0, Triglycerides Level 110, Cholesterol Level 196, LDL Cholesterol Direct 99, VLDL Cholesterol 22, HDL Cholesterol 78H Home Meds Active Reported Eylea (Aflibercept) 2 Mg/0.05 Ml Vial 2 Mg OD EVERY 3 MONTHS Zahira Allergy (Fexofenadine HCl) 180 Mg Tablet 180 Mg PO 1600 PRN Ibuprofen 200 Mg Tablet 400 Mg PO Q6H PRN Zyrtec (Cetirizine HCl) 10 Mg Tablet 10 Mg PO DAILY Latanoprost 2.5 Ml Drops 1 Drop OU HS Discharge Planning: <30 minutes discharge planning Discharge Physical Examination Vital Signs Vital Signs Date Time Temp Pulse Resp B/P (MAP) Pulse Ox O2 Delivery O2 Flow Rate FiO2 01/22/20 12:15 36.6 66 18 138/82 (100) 96 Room Air Allergies: Coded Allergies: ciprofloxacin (Verified Allergy, Unknown, knee joint pain, 03/02/16) Uncoded Allergies: steroids (Allergy, Unknown, has retina problems and told to avoid steroids, 03/02/16) Discharge Summary Date of Admission Jan 21, 2020 at 21:30 Date of Discharge Clinical Quality Measures AMI/AHF: ASA po Prior to arrival: No DVT/VTE Risk/Contraindication: Risk Factor Score Per Nursin RFS Level Per Nursing on Admit: 2=Moderate LOREN CONNELL MD Jan 22, 2020 13:11
[2020-01-22] MEDS ORDERED: PANT40TA52 PO (13:23)
== END 2020-01-22 13:50 | disposition home or self-care (01) ==
LOC: EDUNIT# 18:25 → ER 18:27 → CSD 21:30
PROVIDERS: ADMIT Family Medicine; ATTEND Family Medicine
DX: I24.9 Acute ischemic heart disease, unspecified (principal); R94.39 Abnormal result of other cardiovascular function study; M19.90 Unspecified osteoarthritis, unspecified site; H40.9 Unspecified glaucoma; I10 Essential (primary) hypertension; G89.29 Other chronic pain; R51 Headache; Z79.82 Long term (current) use of aspirin; Z79.899 Other long term (current) drug therapy; Z88.1 Allergy status to other antibiotic agents; Z88.8 Allergy status to other drugs, medicaments and biological substances; Z20.828 Contact with and (suspected) exposure to other viral communicable diseases; Z87.891 Personal history of nicotine dependence
CPT/HCPCS: 71045; 74177; 80053 ×2; 80061; 83690; 83735; 83874; 83880; 84484 ×2; 85025 ×2; 85610; 85730; 93005 ×2; 93041; 99284; G0378; U0002; 36415; 87635

== ENCOUNTER → 2020-02-27 | Outpatient (CLI) | payer OTHER, MEDICARE ==
[~2020-02-27] VITALS: Ht 182 cm; Wt 82.0 kg
[~2020-02-27] MED LIST changes: +AFLI2VIA OD; +CATHETER FLUSH 10 ML SYR IV PRN; +CETI10TA49 PO; +FEXO180T84 PO; +IBUP-2473 PO; +LATA2.5D5 OU; +PANT40TA52 PO
[2020-02-27 13:08] VITALS: BP 141/78
--- NOTE | 2020-02-28 08:04 | Cardiology Stress Test Report ---
Stress Test Report Date of Procedure/Referring: Date of Procedure: Feb 27, 2020 PCP Elizabeth Patino Admitting Physician Andrew Rubio MD Indications: CP Baseline Heart Rate: 70 Baseline Blood Pressure: Blood Pressure Systolic: 141 Blood Pressure Diastolic: 78 Vital Signs Date Time Temp Pulse Resp B/P (MAP) Pulse Ox O2 Delivery O2 Flow Rate FiO2 02/27/20 13:08 70 141/78 (99) 98 Baseline Vital Signs Vital Signs Date Time Temp Pulse Resp B/P (MAP) Pulse Ox O2 Delivery O2 Flow Rate FiO2 02/27/20 13:08 70 141/78 (99) 98 Baseline EKG: Baseline EKG: normal sinus rhythm Summary: After explaining the procedure and details to the patient, he signed the consent and was brought to the stress nuclear laboratory. Patient exercised on standard Niko protocol, EKG, heart rate and blood pressure were monitored continuously, resting and stress doses of radio tracer were injected, imaging was acquired and reviewed in the short axis, horizontal long axis and vertical long axis views Patient was able to exercise for a total of 6:30 minutes on Niko protocol, ME Ts 7.1 Maximum heart rate 136 Maximum blood pressure 215/68 Stress EKG, Minimal nondiagnostic changes Recovery EKG, Return to baseline TID: 1.01 SSS: 1 SDS: 1 EF: 58 Conclusion: 1. Good exercise tolerance for 6 minutes and 30 seconds on standard Niko protocol total of 7.1 METs achieving 87 percent of maximum expected heart rate 2. Baseline hypertension with hypertensive response to exercise with peak blood pressure 215/68 return to baseline during recovery 3. Minimal nondiagnostic EKG changes with exercise returned to baseline during recovery 4. Diaphragmatic attenuation with typical male pattern, no significant ischemia or infarction on SPECT images 5. Normal left ventricular size, EF 58 percent MALINI DEL ROSARIO MD Feb 28, 2020 08:04
== END ==
LOC: CARD 11:00
PROVIDERS: ATTEND Physician Assistant
DX: R07.9 Chest pain, unspecified (principal); I10 Essential (primary) hypertension; M19.90 Unspecified osteoarthritis, unspecified site
CPT/HCPCS: 78452; 93017; 93306; A9502

== ENCOUNTER 2022-05-19 05:57 | Outpatient (CLI) | payer MEDICARE, OTHER ==
[~2022-05-19] VITALS: Ht 182.9 cm; Wt 85.3 kg
[~2022-05-19 05:57] MED LIST changes: -CATHETER FLUSH 10 ML SYR IV PRN
[2022-05-19] MEDS ORDERED: AMLO2.5T4 PO (10:49)
[2022-05-19] MEDS ORDERED: HYDR-700 PO (10:49)
== END 2022-05-19 10:52 | disposition home or self-care (01) ==
LOC: PREOP 05:57
PROVIDERS: ATTEND Internal Medicine
DX: Z01.818 Encounter for other preprocedural examination (principal)

== ENCOUNTER 2022-05-28 07:22 | Day surgery (SDC) | payer MEDICARE, OTHER ==
--- NOTE | 2022-05-18 06:52 | HISTORY AND PHYSICAL ---
DATE OF SERVICE: 05/28/2022 COLONOSCOPY HISTORY AND PHYSICAL HISTORY OF PRESENT ILLNESS: The patient is a 66-year-old white male referred by Dr. Andrew Rubio for screening colonoscopy. He had one other colonoscopy 10 years ago at which time he did have one 3 mm sessile tubular adenoma removed via snare from the descending colon with no other reported abnormalities. He reports his father had a history of colon polyps as well, but he is not aware of any family history of colon cancer. He denies bright red blood per rectum, change in bowel habit or abdominal pain. 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 He has a history of hypertension with no known history of coronary artery disease. He also has a history of glaucoma and is undergoing Eylea injections in the right eye every 5-[address] Iglesias for his wet macular degeneration. PAST SURGICAL HISTORY: He has had several arthroscopic knee surgeries over 20 years ago and had right shoulder surgery in 1977 and a tonsillectomy when he was young. SOCIAL HISTORY: He is disabled secondary to his knees, distant past smoking history. Occasional small volume alcohol use. FAMILY HISTORY: Pertinent for hypertension in several family members. His mother had Alzheimer's and father had colon polyps. Mother also had breast cancer. REVIEW OF SYSTEMS: CONSTITUTIONAL: Denies night sweats, chills, fever, change in weight. PULMONARY: Denies cough, wheezing or shortness of breath. CARDIOVASCULAR: Denies orthopnea, PND, pedal edema, syncope or chest pain. GASTROINTESTINAL: As noted in the HPI. PHYSICAL EXAMINATION: GENERAL: Reveals a white male who appeared to be in no acute distress. VITAL SIGNS: Blood pressure 120/70, weight 188 pounds. HEENT: Unremarkable. Sclerae nonicteric. CHEST: Clear to auscultation. CARDIOVASCULAR: Reveals a regular rate and rhythm without murmur, S3, or S4. ABDOMEN: Soft, supple without mass, organomegaly, or tenderness. EXTREMITIES: No cyanosis, clubbing or edema. ASSESSMENT AND PLAN: The patient is being set up for screening colonoscopy. Prep instructions were given. Dr. Rubio's note was reviewed as well as his electronic medical record. Questions were answered. Thank you for referral of this pleasant gentleman. Job ID: [id number] DocumentID: [id number] Dictated Date: 05/10/2022 15:29:17 Carbonizer Tester Date: 05/10/2022 16:04:00 Dictated By: ANDIE CAMPOS MD MTDD
[~2022-05-28] VITALS: Ht 182.9 cm; Wt 85.3 kg
[~2022-05-28 07:22] MED LIST changes: +AMLO2.5T4 PO; +HYDR-700 PO
[2022-05-28] MEDS ORDERED: LACTATED RINGERS 1,000 ML IV STA (07:25)
[2022-05-28 07:48] VITALS: BP 137/79
--- NOTE | 2022-05-28 07:49 | Pre-Op Note & Conscious Sedat ---
Pre-Operative Progress Note Date H&P Reviewed: May 28, 2022 Time H&P Reviewed: 07:49 History & Physical: H&P Reviewed, Patient Examed, No changes noted Pre-Op Diagnosis: screening Conscious Sedation Pre-Proced ASA Score 2 For ASA 3 and 4: Consider anesthesia and medical clearance. Also, for patients with a history of failed moderate sedation consider anesthesia. Airway Lungs Heart ASA score ASA 1: a normal healthy patient ASA 2: a patient with a mild systemic disease (mid diabetes, controlled hypertension, obesity ASA 3: a patient with a severe systemic disease that limits activity (angina, COPD, prior Myocardial infarction) ASA 4: a patient with an incapacitating disease that is a constant threat to life (CHF, renal failure) ASA 5: a moribund patient not expected to survive 24 hrs. (ruptured aneurysm) ASA 6: a declared brain- patient whose organs are being harvested. For emergent operations, add the letter E after the classification Mallampati Classification Grade 2 Sedation Plan Analgesia, Amnesia, Plan communicated to team members, Discussed options with patient/fam, Discussed risks with patient/fam The patient is an appropriate candidate to undergo the planned procedure, sedation, and anesthesia. The patient immediately re-assessed prior to indication. ANDIE CAMPOS MD May 28, 2022 07:49
[2022-05-28] MEDS ORDERED: PROPOFOL INJECTION 50 ML IV ONE (08:41)
[2022-05-28] MEDS ORDERED: MIDAZOLAM 2 MG/2 ML (VERSED) VIAL ONE (08:41)
[2022-05-28 09:11] VITALS: BP 119/72
--- NOTE | 2022-05-28 09:11 | Progress Note-Post Operative ---
Post-Procedure Note Physician (s)/Community Manager (s) Physician ANDIE CAMPOS MD Pre-Procedure Diagnosis Pre-Procedure Diagnosis: screening Post-Procedure Diagnosis Post-operative diagnosis: Prior to undergoing colonoscopy digital rectal evaluation was performed. Anal suture tone was normal and the perianal reflexes intact. Prostate is mildly enlarged and a nodular on digital inspection. No other abnormalities noted on digital inspection anal canal or distal rectal vault. The colonoscope was then inserted into the rectum and under direct physician advanced the cecum. The cecum was identified by identification of the ileocecal valve and cecal strap. Photographic documentation was obtained. A careful inspection was made as the colonoscope was withdrawn. Quality the prep was good. Findings: There are no evidence for internal or external hemorrhoids and the rectum was unremarkable. Mild diverticular disease confined to the sigmoid colon is present without evidence for diverticulitis. No other sigmoid colonic abnormalities are appreciated. The descending colon splenic flexure transverse colon hepatic flexure ascending colon and cecum were unremarkable. Assessment: 1. No evidence for neoplasia was then applied on today's procedure would advocate consideration for repeat screening colonoscopy in 10 years. 2. Digital evaluation the prostate is compatible with mild BPH. 3. Mild diverticular disease confined to the sigmoid colon is present without evidence for diverticulitis. CC: MD BETH Gant,ANDIE Wynne MD May 28, 2022 09:11
[2022-05-28 09:16] VITALS: BP 129/69
[2022-05-28 09:42] VITALS: BP 129/69
--- NOTE | 2022-05-28 12:08 | Anesthesia-General Post-Op ---
MAC Patient Condition Mental Status/LOC: Same as Preop Cardiovascular: Satisfactory Nausea/Vomiting: Absent Respiratory: Satisfactory Pain: Controlled Complications: Absent Post Op Complications Complications None Follow Up Care/Instructions Patient Instructions None needed. Anesthesiology Discharge Order Discharge Order Patient is doing well, no complaints, stable vital signs, no apparent adverse anesthesia problems. No complications reported per nursing. LIDIA SEYMOUR CRNA May 28, 2022 12:08
== END 2022-05-28 09:56 | disposition home or self-care (01) ==
LOC: ENDO 07:22
PROVIDERS: ATTEND Internal Medicine
DX: Z12.11 Encounter for screening for malignant neoplasm of colon (principal); K57.30 Diverticulosis of large intestine without perforation or abscess without bleeding; N40.0 Benign prostatic hyperplasia without lower urinary tract symptoms; Z87.891 Personal history of nicotine dependence; Z28.310 Unvaccinated for COVID-19; Z86.010 Personal history of colon polyps